=== PATIENT | male | born 1955 | race Caucasian/White ===

== ENCOUNTER → 2020-07-12 | Outpatient (CLI) | payer OTHER | END | disposition home or self-care (01) | LOC: CFH 14:29 | PROVIDERS: ATTEND Internal Medicine Cardiovascular Disease | DX: Z13.6 Encounter for screening for cardiovascular disorders (principal); I25.10 Atherosclerotic heart disease of native coronary artery without angina pectoris; E78.00 Pure hypercholesterolemia, unspecified; R06.02 Shortness of breath; R55 Syncope and collapse | CPT/HCPCS: 75571; 93306 ==